=== PATIENT | female | born 1940 | race Hispanic/Latino ===

== ENCOUNTER 2018-10-06 13:44 | Emergency (ER) | payer MEDICARE ==
[2018-10-06 14:56] VITALS: BP 150/73
--- NOTE | 2018-10-06 14:56 | Event Note ---
ED Screening Note Date of service: 10/06/18 Time: 14:53 ED Screening Note: This is a 78 y.o. F. that presents to the ER with pain, redness, and visual changes to left eye for 3 days. PMH of HTN and GERD This initial assessment/diagnostic orders/clinical plan/treatment(s) is/are subject to change based on patients health status, clinical progression and re- assessment by fellow clinical providers in the ED. Further treatment and workup at subsequent clinical providers discretion. Patient/guardian urged not to elope from the ED as their condition may be serious if not clinically assessed and managed. Initial orders include: Visual acuity Allred Lamp
--- NOTE | 2018-10-06 16:04 | Emergency Department Report ---
[facility] Chief Complaint: Eye Problems Stated Complaint: EYE PAIN Time Seen by Provider: 10/06/18 14:53 Duration: 3 Days Side: Left Severity: moderate Symptoms: Yes Eye Itching, Yes Eye Redness, Yes Eye Pain, Yes Mucous Drainage, No Purulent Drainage, No Blurred Vision, No Preceding URI, No H/O Allergic Rhinitis, No Contact Lens Use, No Trauma, No Fever, No Headache Other History: [place] a foreign body sensation several days ago and her symptoms have been progressively worsening. ED Review of Systems ROS: Stated complaint: EYE PAIN Other details as noted in HPI Comment: All other systems reviewed and negative ED Past Medical Hx - Past Medical History Hx Hypertension: Yes Hx GERD: Yes Hx Arthritis: Yes - Surgical History Past Surgical History?: Yes Additional Surgical History: nasal polyp removal 11/10 - Social History Smoking Status: Never Smoker Substance Use Type: None - Medications Home Medications: Home Medications Medication Instructions Recorded Confirmed Last Taken Type Rabeprazole Sodium [Aciphex] 1 tab PO DAILY 11/19/13 11/28/13 11/28/13 History Valsartan [Diovan] 320 mg PO QDAY #30 tablet 12/04/13 Unknown Rx Warfarin [Coumadin] 5 mg PO DAILY@1700 #7 tablet 12/04/13 Unknown Rx Gentamicin 0.3% Ophth Soln 2 drops OP Q4H #1 bottle 10/06/18 Unknown Rx Naphazoline HCl/Pheniramine 1 drop OP Q6H #1 bottle 10/06/18 Unknown Rx [Naphcon-A Eye Drops] [facility] Exam - Exam General: Vital signs noted. No distress. Alert and acting appropriately. Eye Exam: Left Injection, Left Chemosis, Left Mucous Discharge, Both EOMI, Neither Abnormal Pupil, Neither Eye Foreign Body, Neither Lid Foreign Body, Neither Purulent Discharge HEENT: No Nasal Congestion, No Pharyngeal Erythema Remainder of HEENT: Normal Lungs: Yes Clear Lung Sounds, Yes Good Air Exchange, No Wheezes, No Stridor, No Cough, No Nasal Flaring ED Course Vital Signs 10/06/18 14:53 Temperature 98.6 F Pulse Rate 71 Respiratory 16 Rate Blood Pressure 150/73 [Left] O2 Sat by Pulse 95 Oximetry ED Medical Decision Making - Medical Decision Making Pt to be treated for a simple conjunctivitis likely secondary to corneal rubens fermin. No foreign bodies were appreciated at this time. Critical care attestation.: If time is entered above; I have spent that time in minutes in the direct care of this critically ill patient, excluding procedure time. ED Disposition Clinical Impression: Bacterial conjunctivitis Disposition: DC- TO HOME OR SELFCARE Is pt being admited?: No Does the pt Need Aspirin: No Condition: Stable Instructions: Conjunctivitis (ED) Referrals: LILIAN KING MD [Primary Care Provider] - 3-5 Days Time of Disposition: 16:03
== END 2018-10-06 16:16 | disposition home or self-care (01) ==
LOC: ED 13:44
DX: H10.32 Unspecified acute conjunctivitis, left eye (principal); K21.9 Gastro-esophageal reflux disease without esophagitis; I10 Essential (primary) hypertension; M19.90 Unspecified osteoarthritis, unspecified site; Z79.01 Long term (current) use of anticoagulants; Z79.899 Other long term (current) drug therapy
CPT/HCPCS: 99283